=== PATIENT | female | born 1960 | race Caucasian/White ===

== ENCOUNTER 2022-03-21 23:44 | Outpatient (REF) | payer OTHER, SELFPAY ==
[2022-03-22 00:05] LABS: COVID-19 Test Positive (Negative)
== END 2022-03-21 23:45 | disposition home or self-care (01) ==
LOC: HO.LAB 23:44
PROVIDERS: Visit Provider Internal Medicine
DX: Z20.822 Contact with and (suspected) exposure to COVID-19 (principal)
CPT/HCPCS: 87635